=== PATIENT | male | born 1975 | race Caucasian/White ===

== ENCOUNTER 2020-02-20 14:23 | Emergency (ER) | payer BC ==
[~2020-02-20] VITALS: Ht 160 cm; Wt 70.3 kg
[~2020-02-20 14:23] MED LIST: Ciprofloxacin500 MG PO; FLOMAX0.4 MG PO; HYDROCODONE BIT1 T11 PO; IBU800 M1 PO; KEFLEX500 M1 PO; MOTRIN800 MG PO; OMEPRAZOLE40 MG PO; PERCOCET 325 MG1 TA2 PO; PYRIDIUM200 M1 PO; ZANTAC150 MG PO; ZOFRAN ODT4 MG SL; ZOFRAN4 MG PO
== END 2020-02-20 17:05 | disposition left against medical advice (07) ==
LOC: ED 14:23
DX: R51.9 Headache, unspecified (principal); Z53.21 Procedure and treatment not carried out due to patient leaving prior to being seen by health care provider

== ENCOUNTER 2021-11-19 09:55 | Emergency (ER) | payer OTHER ==
[~2021-11-19] VITALS: Wt 75.7 kg
[2021-11-19 10:24] LABS: BASO # 0.1 10*3/uL (0.0-0.1); BASO % 0.7 % (0.0-1.0); EOS # 0.1 10*3/uL (0.0-0.4); EOS % 1.9 % (1.0-4.0); HEMATOCRIT 47.5 % (42.0-52.0); LYMPH # 2.3 10*3/uL (1.3-4.4); LYMPH % 30.8 % (27.0-41.0); MEAN CELL VOLUME 92.6 fl (80.0-94.0); MEAN CORPUSCULAR HGB 31.4 pg (27.0-31.0); MEAN CORPUSCULAR HGB CONC 33.9 g/dl (33.0-37.0); MEAN PLATELET VOLUME 9.8 fl (9.6-12.3); MONO # 0.9 10*3/uL (0.1-1.0); MONO % 12.6 % (3.0-9.0); NEUT % 53.7 % (47.0-73.0); PLATELET COUNT AUTOMATED 292 10*3/uL (130-400); RED BLOOD COUNT 5.13 10*6/uL (4.50-5.90); RED CELL DISTRI WIDTH 13.6 % (0-14.5); WHITE BLOOD COUNT 7.5 10*3/uL (4.8-10.8)
[2021-11-19 10:38] LABS: ACT PARTIAL THROMBO TIME 29.1 SECONDS (20.0-32.1)
[2021-11-19 10:50] LABS: ALKALINE PHOSPHATASE 68 U/L (45-117); BUN 13 mg/dl (7-24); CHLORIDE 108 mmol/L (98-107); POTASSIUM 4.2 mmol/L (3.5-5.1); SGOT/AST 18 IU/L (3-35); SGPT/ALT 42 U/L (12-78); SODIUM 140 mmol/L (136-145); TOTAL PROTEIN 7.1 gm/dL (6.4-8.2)
[2021-11-19] MEDS ORDERED: VOLTAREN ARTHRI20 GM T (12:18)
== END 2021-11-19 13:09 | disposition home or self-care (01) ==
LOC: ED 09:55
PROVIDERS: Emergency Medicine
DX: R07.89 Other chest pain (principal); Z79.899 Other long term (current) drug therapy

== ENCOUNTER → 2022-01-06 | Outpatient (CLI) | payer OTHER ==
[~2022-01-06] MED LIST changes: +VOLTAREN ARTHRI20 GM T
== END | disposition home or self-care (01) ==
LOC: CT 10:00
PROVIDERS: ATTEND Family Medicine
DX: N20.0 Calculus of kidney (principal)

== ENCOUNTER 2023-06-03 10:17 | Emergency (ER) | payer OTHER ==
[~2023-06-03] VITALS: Ht 160 cm; Wt 74.8 kg
[2023-06-03] MEDS ORDERED: diphenhydrAMINE hydrochloride 50 MG/ML VIAL IV ONE (10:30)
[2023-06-03] MEDS ORDERED: methylPREDNISolone sod succ 125 MG VIAL IV ONE (10:30)
[2023-06-03] MEDS ORDERED: FAMOTIDINE 50 ML IV ONE (10:35)
[2023-06-03] MEDS ORDERED: EPINEPHrine Hydrochloride 1 MG/ML AMP IM ONE (10:40)
[2023-06-03] MEDS ORDERED: PREDNISONE50 MG PO (12:45)
== END 2023-06-03 12:54 | disposition home or self-care (01) ==
LOC: ED 10:17
DX: T78.3XXA Angioneurotic edema, initial encounter (principal); Z98.890 Other specified postprocedural states; Z87.442 Personal history of urinary calculi

== ENCOUNTER → 2023-09-25 | Outpatient (CLI) | payer OTHER ==
[~2023-09-25] MED LIST changes: +PREDNISONE50 MG PO
== END ==
LOC: ORTHO 01:17
PROVIDERS: ATTEND Orthopaedic Surgery
DX: M25.512 Pain in left shoulder (principal)

== ENCOUNTER 2024-12-29 13:58 | Emergency (ER) | payer SELFPAY ==
[~2024-12-29] VITALS: Ht 160 cm; Wt 72.6 kg
[2024-12-29] MEDS ORDERED: SODIUM CHLORIDE 0.9% 1,000 ML IV ONE (14:45)
[2024-12-29 15:08] LABS: MANUAL DIFF REFLEX YES; MEAN CELL VOLUME 91.3 fl (80.0-94.0); MEAN CORPUSCULAR HGB 30.5 pg (27.0-31.0); MEAN PLATELET VOLUME 10.8 fl (9.6-12.3); NUCLEATED RED BLOOD CELL 0.0 % (0.0-0.0); NUCLEATED RED BLOOD CELL 0.0 10*3/uL (0.0-0.0); PLATELET COUNT AUTOMATED 359 10*3/uL (130-400); RED CELL DISTRI WIDTH 14.2 % (0-14.5)
[2024-12-29 16:04] LABS: PLATELET SUFFICIENCY NORMAL (NORMAL)
[2024-12-29 16:19] LABS: BUN 15 mg/dl (9-23); SGPT/ALT 29 U/L (5-49)
[2024-12-29 16:38] LABS: BILIRUBIN Negative (Negative); BLOOD 3+ (Negative); CLARITY Clear (Clear); COLOR Dark Yellow (Yellow); KETONE 2+ (Negative); LEUKO ESTERASE Negative (Negative); NITRITE Negative (Negative); PH 5.0 (4.5-8.0); SPECIFIC GRAVITY >= 1.030 (1.001-1.030); UROBILINOGEN 1.0 E.U./dl (0.0-1.0)
[2024-12-29 16:58] LABS: BACTERIA TRACE; RBC 31-40 rbc/hpf (0-2); WBC 0-2 wbc/hpf (0-5)
[2024-12-29 16:59] LABS: EPITHELIAL CELLS 0-2
[2024-12-29 18:05] LABS: MEAN CELL VOLUME 92.7 fl (80.0-94.0); MEAN CORPUSCULAR HGB 30.5 pg (27.0-31.0); MEAN PLATELET VOLUME 10.0 fl (9.6-12.3); NUCLEATED RED BLOOD CELL 0.0 % (0.0-0.0); NUCLEATED RED BLOOD CELL 0.0 10*3/uL (0.0-0.0); PLATELET COUNT AUTOMATED 349 10*3/uL (130-400); RED CELL DISTRI WIDTH 13.8 % (0-14.5)
[2024-12-29 18:06] LABS: MANUAL DIFF REFLEX YES
[2024-12-29] MEDS ORDERED: HYDROCODONE-AC1 EAC1 PO (18:22)
[2024-12-29] MEDS ORDERED: PREDNISONE20 M1 PO (18:22)
[2024-12-29] MEDS ORDERED: FLOMAX0.4 MG PO (18:22)
[2024-12-29 18:28] LABS: BASOPHILS 1 % (0-1); PLATELET SUFFICIENCY NORMAL (NORMAL)
[2024-12-29] MEDS ORDERED: Ondansetron4 MG PO (18:28)
== END 2024-12-29 18:47 | disposition home or self-care (01) ==
LOC: ED 13:58
PROVIDERS: Emergency Medicine
DX: N20.0 Calculus of kidney (principal); Z79.899 Other long term (current) drug therapy; Z98.890 Other specified postprocedural states

== ENCOUNTER → 2025-01-24 | Outpatient (CLI) | payer BC ==
[~2025-01-24] MED LIST changes: +HYDROCODONE-AC1 EAC1 PO; +IOHEXOL 300 MG/ML 100 ML VIAL IV ONE; +IOHEXOL 300 MG/ML 100 ML VIAL ONE; +Ondansetron4 MG PO; +PREDNISONE20 M1 PO
== END | disposition home or self-care (01) ==
LOC: CT 10:49
PROVIDERS: ATTEND Family Medicine
DX: R91.8 Other nonspecific abnormal finding of lung field (principal); M47.819 Spondylosis without myelopathy or radiculopathy, site unspecified; I70.0 Atherosclerosis of aorta